=== PATIENT | male | born 1960 | race Caucasian/White ===

== ENCOUNTER 2017-04-11 00:29 | Emergency (ER) | payer OTHER, SELFPAY ==
[~2017-04-11] VITALS: Ht 175.3 cm; Wt 93.0 kg
[2017-04-11] MEDS ORDERED: TEST1GEL10 TD (01:01)
[2017-04-11] MEDS ORDERED: ATOR80TA59 PO (01:01)
[2017-04-11] MEDS ORDERED: OMEP40CA2 PO (01:01)
[2017-04-11] MEDS ORDERED: BACT800T5 PO (01:55)
[2017-04-11] MEDS ORDERED: PRED20TA PO (01:55)
[2017-04-11 02:02] VITALS: BP 159/81
== END 2017-04-11 02:03 | disposition home or self-care (01) ==
LOC: M ED 00:29
DX: L03.113 Cellulitis of right upper limb (principal); S50.861A Insect bite (nonvenomous) of right forearm, initial encounter; X58.XXXA Exposure to other specified factors, initial encounter; Y92.89 Other specified places as the place of occurrence of the external cause; Y93.89 Activity, other specified; Y99.8 Other external cause status; I10 Essential (primary) hypertension; E78.9 Disorder of lipoprotein metabolism, unspecified; Z79.899 Other long term (current) drug therapy; Z87.891 Personal history of nicotine dependence; Z87.438 Personal history of other diseases of male genital organs